=== PATIENT | male | born 1975 | race Caucasian/White ===

== ENCOUNTER 2025-04-14 14:58 | Emergency (ER) | payer MEDICAID, OTHER ==
[2025-04-14] MEDS: Proparacaine 0.5% Ophth Soln 15 ML Bottle EYELF ONE (18:11)
[2025-04-14] MEDS: Erythromycin Base 0.5% Ophth Oint 1 GM Tube EYEBOTH ONE (18:11)
[2025-04-14] MEDS: Fluorescein 1 MG Ophth Strip EYELF ONE (18:12)
== END 2025-04-14 18:15 | disposition home or self-care (01) ==
LOC: JD.ED 14:58
DX: S05.02XA Injury of conjunctiva and corneal abrasion without foreign body, left eye, initial encounter (principal); F17.210 Nicotine dependence, cigarettes, uncomplicated; Z88.1 Allergy status to other antibiotic agents; X58.XXXA Exposure to other specified factors, initial encounter; Y93.89 Activity, other specified
CPT/HCPCS: 99283; A9270; J3490